=== PATIENT | male | born 1995 | race Native Hawaiian/Other Pacific Islander ===

== ENCOUNTER 2017-10-22 00:48 | Emergency (ER) | payer MEDICAID ==
[~2017-10-22 00:48] MED LIST: TRAM-388 PO
[2017-10-22 01:15] VITALS: BP 146/76; PULSE 96; RESP 18; O2SAT 98
[2017-10-22 01:30] LABS: AUTOMATED NEUTROPHIL # 7.3 TH/MM3 (1.8-7.7); BASOPHIL % 0.4 % (0.0-2.0); EOSINOPHIL # 0.1 TH/MM3 (0-0.4); EOSINOPHIL % 0.8 % (0.0-4.0); HEMOGLOBIN 15.5 GM/DL (13.0-17.0); LYMPH % 16.6 % (9.0-44.0); LYMPHOCYTE # 1.6 TH/MM3 (1.0-4.8); MEAN CELL VOLUME 84.8 FL (80.0-100.0); MEAN CORPUSCULAR HEMOGLOBIN 29.2 PG (27.0-34.0); MEAN CORPUSCULAR HGB CONC 34.4 % (32.0-36.0); MEAN PLATELET VOLUME 8.8 FL (7.0-11.0); MONO % 6.3 % (0.0-8.0); MONOCYTE # 0.6 TH/MM3 (0-0.9); NEUT % 75.9 % (16.0-70.0); PLATELET COUNT 232 TH/MM3 (150-450); RED CELL DISTRIBUTION WIDTH 13.5 % (11.6-17.2); WHITE BLOOD COUNT 9.6 TH/MM3 (4.0-11.0)
[2017-10-22 01:32] LABS: BILIRUBIN, URINE NEG (NEG); BLOOD, URINE NEG (NEG); GLUCOSE,URINE NEG (NEG); KETONE, URINE NEG (NEG); MUCUS URINE FEW /lpf (OCC); NITRITE,URINE NEG (NEG); URINE COLOR YELLOW (YELLW/STRAW); URINE LEUKOCYTE ESTERASE NEG (NEG)
--- NOTE | 2017-10-22 01:49 | PD ---
HPI Chief Complaint: Psychiatric Symptoms Time Seen by Provider: 01:02 Travel History International Travel<30 days: No Contact w/Intl Traveler<30days: No Traveled to known affect area: No History of Present Illness HPI Patient is a 22-year-old male presented to the emergency department for psychiatric evaluation under Reyna act. Patient allegedly made statement that he was going to kill himself. Patient reported that he was not invited to a green party, he questioned her friend as to why and he was given "constructive criticism" about things he could improve on himself. That is when he made no statements. He denies wanting to kill himself, he denies any psychiatric history previous suicidal ideations. He states that after he talked to his friend Mary he went running and for a drive. He states the person that called the police never even attempted to get in contact with him. Symptom onset was sudden, the exacerbating factors include his friends. PFSH Past Medical History Medical History: Denies Significant Hx Diabetes: No Patient Takes Glucophage: No Diminished Hearing: No Immunizations Current: Yes Past Surgical History Surgical History: No Previous Surgery Social History Alcohol Use: No Tobacco Use: No Substance Use: No Allergies-Medications (Allergen,Severity, Reaction): Coded Allergies: No Known Allergies (Unverified , 07/03/15) Reported Meds & Prescriptions Reported Meds & Active Scripts Active Review of Systems Except as stated in HPI: all other systems reviewed are Neg Physical Exam Narrative GENERAL: Well Developed, well-nourished, alert male. Resting in no acute distress. SKIN: Warm and dry. HEAD: Atraumatic. Normocephalic. EYES: Pupils equal and round. No scleral icterus. No injection or drainage. ENT: No nasal bleeding or discharge. Mucous membranes pink and moist. NECK: Trachea midline. No JVD. CARDIOVASCULAR: Regular rate and rhythm. RESPIRATORY: No accessory muscle use. Clear to auscultation. Breath sounds equal bilaterally. GASTROINTESTINAL: Abdomen soft, non-tender, nondistended. Hepatic and splenic margins not palpable. MUSCULOSKELETAL: Extremities without clubbing, cyanosis, or edema. No obvious deformities. NEUROLOGICAL: Awake and alert. No obvious cranial nerve deficits. Motor grossly within normal limits. Five out of 5 muscle strength in the arms and legs. Normal speech. PSYCHIATRIC: Appropriate mood and affect; insight and judgment normal. Data Data Last Documented VS Vital Signs Date Time Temp Pulse Resp B/P (MAP) Pulse Ox O2 Delivery O2 Flow Rate FiO2 10/22/17 01:15 96 18 146/76 (99) 98 Room Air Orders Orders Complete Blood Count With Diff (10/22/17 01:00) Comprehensive Metabolic Panel (10/22/17 01:00) Thyroid Stimulating Hormone (10/22/17 01:00) Urinalysis - C+S If Indicated (10/22/17 01:00) Psych Screen (10/22/17 01:00) Drug Screen, Random Urine (10/22/17 01:00) Alcohol (Ethanol) (10/22/17 01:00) Salicylates (Aspirin) (10/22/17 01:00) Tylenol (Acetaminophen) (10/22/17 01:00) Labs Laboratory Tests Test 10/22/17 01:15 White Blood Count 9.6 TH/MM3 Red Blood Count 5.30 MIL/MM3 Hemoglobin 15.5 GM/DL Hematocrit 45.0 % Mean Corpuscular Volume 84.8 FL Mean Corpuscular Hemoglobin 29.2 PG Mean Corpuscular Hemoglobin Concent 34.4 % Red Cell Distribution Width 13.5 % Platelet Count 232 TH/MM3 Mean Platelet Volume 8.8 FL Neutrophils (%) (Auto) 75.9 % Lymphocytes (%) (Auto) 16.6 % Monocytes (%) (Auto) 6.3 % Eosinophils (%) (Auto) 0.8 % Basophils (%) (Auto) 0.4 % Neutrophils # (Auto) 7.3 TH/MM3 Lymphocytes # (Auto) 1.6 TH/MM3 Monocytes # (Auto) 0.6 TH/MM3 Eosinophils # (Auto) 0.1 TH/MM3 Basophils # (Auto) 0.0 TH/MM3 CBC Comment DIFF FINAL Differential Comment Urine Color YELLOW Urine Turbidity CLEAR Urine pH 6.0 Urine Specific [place] 1.036 Urine Protein TRACE mg/dL Urine Glucose (UA) NEG mg/dL Urine Ketones NEG mg/dL Urine Occult Blood NEG Urine Nitrite NEG Urine Bilirubin NEG Urine Urobilinogen 2.0 MG/DL Urine Leukocyte Esterase NEG Urine RBC 1 /hpf Urine WBC 1 /hpf Urine Mucus FEW /lpf Microscopic Urinalysis Comment CULT NOT INDICATED Blood Urea Nitrogen 20 MG/DL Creatinine 1.15 MG/DL Random Glucose 148 MG/DL Total Protein 7.5 GM/DL Albumin 4.3 GM/DL Calcium Level 8.6 MG/DL Alkaline Phosphatase 71 U/L Aspartate Amino Transf (AST/SGOT) 16 U/L Alanine Aminotransferase (ALT/SGPT) 31 U/L Total Bilirubin 0.2 MG/DL Sodium Level 140 MEQ/L Potassium Level 3.7 MEQ/L Chloride Level 104 MEQ/L Carbon Dioxide Level 27.1 MEQ/L Anion Gap 9 MEQ/L Estimat Glomerular Filtration Rate 80 ML/MIN Thyroid Stimulating Hormone 3rd Gen 1.100 uIU/ML Salicylates Level LESS THAN 1.7 MG/DL Urine Opiates Screen NEG Acetaminophen Level LESS THAN 2.0 MCG/ML Urine Barbiturates Screen NEG Urine Amphetamines Screen NEG Urine Benzodiazepines Screen NEG Urine Cocaine Screen NEG Urine Cannabinoids Screen NEG Ethyl Alcohol Level LESS THAN 3 MG/DL MDM Medical Decision Making Medical Screen Exam Complete: Yes Emergency Medical Condition: Yes Interpretation(s) Vital Signs Date Time Temp Pulse Resp B/P (MAP) Pulse Ox O2 Delivery O2 Flow Rate FiO2 10/22/17 01:15 96 18 146/76 (99) 98 Room Air Differential Diagnosis Mood disorder versus substance abuse versus metabolic abnormality versus other Narrative Course Patient is a 22-year-old male presenting for psychiatric evaluation under Reyna act. Patient's vital signs are stable. Mental health screening discussed with the patient. Psychiatric screen ordered. Labs reviewed, no acute findings identified. Patient is medically clear for psychiatric evaluation. Diagnosis Primary Impression: Medical clearance for psychiatric admission Condition: Stable Jessi Olivares Oct 22, 2017 01:48
[2017-10-22 02:16] LABS: ALKALINE PHOSPHATASE 71 U/L (45-117); TOTAL BILIRUBIN ADULT 0.2 MG/DL (0.2-1.0); TOTAL PROTEIN 7.5 GM/DL (6.4-8.2)
[2017-10-22 02:18] LABS: ALBUMIN 4.3 GM/DL (3.4-5.0); ALT (GPT) 31 U/L (12-78); AST (GOT) 16 U/L (15-37); BICARBONATE 27.1 MEQ/L (21.0-32.0); BLOOD UREA NITROGEN 20 MG/DL (7-18); CALCIUM 8.6 MG/DL (8.5-10.1); CHLORIDE 104 MEQ/L (98-107); CREATININE 1.15 MG/DL (0.60-1.30); GLOMERULAR FILTRATION RATE 80 ML/MIN (>89); GLUCOSE,RANDOM 148 MG/DL (74-106); SODIUM (NA) 140 MEQ/L (136-145)
[2017-10-22 02:20] LABS: ACETAMINOPHEN LESS THAN 2.0 MCG/ML (10.0-30.0)
[2017-10-22 07:32] VITALS: BP 141/86; PULSE 86; RESP 18; TEMP 98.4; O2SAT 98
--- NOTE | 2017-10-22 09:48 | PD ---
Physical Exam Date Seen by Provider: Oct 22, 2017 Time Seen by Provider: 09:48 Narrative 22-year-old male previously Reyna acted and medically cleared for psychiatric evaluation, patient seen by psychiatry and felt to be psychiatrically stable for discharge. Patient remains medically stable at time of discharge. Follow- up is as per psychiatric note. Data Data Last Documented VS Vital Signs Date Time Temp Pulse Resp B/P (MAP) Pulse Ox O2 Delivery O2 Flow Rate FiO2 10/22/17 07:32 98.4 86 18 141/86 (104) 98 Room Air Orders Orders Complete Blood Count With Diff (10/22/17 01:00) Comprehensive Metabolic Panel (10/22/17 01:00) Thyroid Stimulating Hormone (10/22/17 01:00) Urinalysis - C+S If Indicated (10/22/17 01:00) Psych Screen (10/22/17 01:00) Drug Screen, Random Urine (10/22/17 01:00) Alcohol (Ethanol) (10/22/17 01:00) Salicylates (Aspirin) (10/22/17 01:00) Tylenol (Acetaminophen) (10/22/17 01:00) Diet Regular Basic (10/22/17 Breakfast) Labs Laboratory Tests Test 10/22/17 01:15 White Blood Count 9.6 TH/MM3 Red Blood Count 5.30 MIL/MM3 Hemoglobin 15.5 GM/DL Hematocrit 45.0 % Mean Corpuscular Volume 84.8 FL Mean Corpuscular Hemoglobin 29.2 PG Mean Corpuscular Hemoglobin Concent 34.4 % Red Cell Distribution Width 13.5 % Platelet Count 232 TH/MM3 Mean Platelet Volume 8.8 FL Neutrophils (%) (Auto) 75.9 % Lymphocytes (%) (Auto) 16.6 % Monocytes (%) (Auto) 6.3 % Eosinophils (%) (Auto) 0.8 % Basophils (%) (Auto) 0.4 % Neutrophils # (Auto) 7.3 TH/MM3 Lymphocytes # (Auto) 1.6 TH/MM3 Monocytes # (Auto) 0.6 TH/MM3 Eosinophils # (Auto) 0.1 TH/MM3 Basophils # (Auto) 0.0 TH/MM3 CBC Comment DIFF FINAL Differential Comment Urine Color YELLOW Urine Turbidity CLEAR Urine pH 6.0 Urine Specific [place] 1.036 Urine Protein TRACE mg/dL Urine Glucose (UA) NEG mg/dL Urine Ketones NEG mg/dL Urine Occult Blood NEG Urine Nitrite NEG Urine Bilirubin NEG Urine Urobilinogen 2.0 MG/DL Urine Leukocyte Esterase NEG Urine RBC 1 /hpf Urine WBC 1 /hpf Urine Mucus FEW /lpf Microscopic Urinalysis Comment CULT NOT INDICATED Blood Urea Nitrogen 20 MG/DL Creatinine 1.15 MG/DL Random Glucose 148 MG/DL Total Protein 7.5 GM/DL Albumin 4.3 GM/DL Calcium Level 8.6 MG/DL Alkaline Phosphatase 71 U/L Aspartate Amino Transf (AST/SGOT) 16 U/L Alanine Aminotransferase (ALT/SGPT) 31 U/L Total Bilirubin 0.2 MG/DL Sodium Level 140 MEQ/L Potassium Level 3.7 MEQ/L Chloride Level 104 MEQ/L Carbon Dioxide Level 27.1 MEQ/L Anion Gap 9 MEQ/L Estimat Glomerular Filtration Rate 80 ML/MIN Thyroid Stimulating Hormone 3rd Gen 1.100 uIU/ML Salicylates Level LESS THAN 1.7 MG/DL Urine Opiates Screen NEG Acetaminophen Level LESS THAN 2.0 MCG/ML Urine Barbiturates Screen NEG Urine Amphetamines Screen NEG Urine Benzodiazepines Screen NEG Urine Cocaine Screen NEG Urine Cannabinoids Screen NEG Ethyl Alcohol Level LESS THAN 3 MG/DL MDM Medical Record Reviewed: Yes Supervised Visit with NICHOLAS: Yes Narrative Course 22-year-old male previously Reyna acted and medically cleared for psychiatric evaluation, patient seen by psychiatry and felt to be psychiatrically stable for discharge. Patient remains medically stable at time of discharge. Follow- up is as per psychiatric note. Diagnosis Primary Impression: Medical clearance for psychiatric admission Referrals: NO PRIMARY CARE PHYSICIAN (PCP) Patient Instructions: General Instructions Departure Forms: Tests/Procedures Disposition: DISCHARGE HOME Condition: Stable Wilman Castillo Oct 22, 2017 09:48
--- NOTE | 2017-10-22 09:53 | PD ---
History of Present Illness Chief Complaint: Psychiatric Symptoms Time Seen by Provider: 09:00 Travel History International Travel<30 Days: No Contact w/Intl Traveler<30days: No Known affected area: No Legal Status Legal Status: Reyna Act Reyna Act Signed By: Kimani Rincon Reyna Act Comment: 10/22/2017 1230 AM OFC. 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 Patient currently calm, pleasant and cooperative. Denies being actually suicidal but admits to having made statements last night. States he was upset but also reports leonard for safety. Told multiple friends last night he was not going to harm himself but one of his friends did not get the message and called police. At this time, the patient denies any suicidal or homicidal ideation, plan or intent. He has no psychotic symptoms and his cognition is intact. He is verbally leonard for safety and he is competent to do so. He does not wish to call his parents in [place], as they have been through "a lot" with his brother and he does not wish to worry them. PFSH Past Medical History Medical History: Denies Significant Hx Diabetes: No Patient Takes Glucophage: No Diminished Hearing: No Immunizations Current: Yes Past Surgical History Surgical History: No Previous Surgery Psychiatric History Psychiatric History Hx Psychiatric Treatment: Patient denies any inpatient or outpatient psychiatric treatment. History of Inpatient Treatment: No Guns or firearms in home: No Social History Hx Alcohol Use: No Hx Tobacco Use: No Hx Substance Use: No Hx of Substance Use Treatment: No Allergies-Medications (Allergen,Severity, Reaction): Coded Allergies: No Known Allergies (Unverified , 07/03/15) Reported Meds & Prescriptions Reported Meds & Active Scripts Active Review of Systems Except as stated in HPI: all other systems reviewed are Neg Mental Status Examination Appearance: Appropriate Consciousness: Alert Orientation: x4 Motor Activity: Normal gait Speech: Unremarkable Language: Adequate Fund of Knowledge: Adequate Attention and Concentration: Adequate Memory: Unremarkable Mood: Appropriate Affect: Appropriate Thought Process & Associations: Intact Thought Content: Appropriate Hallucination Type: None Delusion Type: None Suicidal Ideation: No Suicidal Plan: No Suicidal Intention: No Homicidal Ideation: No Homicidal Plan: No Homicidal Intention: No Insight: Adequate Judgment: Adequate [facility] Medical Decision Making Medical Record Reviewed: Yes Assessment/Plan Patient interviewed at bedside. Electronic medical record reviewed. Case discussed with nurse Cristy. Patient does not meet Reyna act criteria at this time and does not meet criteria for involuntary psychiatric hospitalization. Orders Orders Complete Blood Count With Diff (10/22/17 01:00) Comprehensive Metabolic Panel (10/22/17 01:00) Thyroid Stimulating Hormone (10/22/17 01:00) Urinalysis - C+S If Indicated (10/22/17 01:00) Psych Screen (10/22/17 01:00) Drug Screen, Random Urine (10/22/17 01:00) Alcohol (Ethanol) (10/22/17 01:00) Salicylates (Aspirin) (10/22/17 01:00) Tylenol (Acetaminophen) (10/22/17 01:00) Diet Regular Basic (10/22/17 Breakfast) Results Vital Signs Date Time Temp Pulse Resp B/P (MAP) Pulse Ox O2 Delivery O2 Flow Rate FiO2 10/22/17 07:32 98.4 86 18 141/86 (104) 98 Room Air 10/22/17 01:15 96 18 146/76 (99) 98 Room Air Laboratory Tests Test 10/22/17 01:15 White Blood Count 9.6 Red Blood Count 5.30 Hemoglobin 15.5 Hematocrit 45.0 Mean Corpuscular Volume 84.8 Mean Corpuscular Hemoglobin 29.2 Mean Corpuscular Hemoglobin Concent 34.4 Red Cell Distribution Width 13.5 Platelet Count 232 Mean Platelet Volume 8.8 Neutrophils (%) (Auto) 75.9 Lymphocytes (%) (Auto) 16.6 Monocytes (%) (Auto) 6.3 Eosinophils (%) (Auto) 0.8 Basophils (%) (Auto) 0.4 Neutrophils # (Auto) 7.3 Lymphocytes # (Auto) 1.6 Monocytes # (Auto) 0.6 Eosinophils # (Auto) 0.1 Basophils # (Auto) 0.0 CBC Comment DIFF FINAL Differential Comment Urine Color YELLOW Urine Turbidity CLEAR Urine pH 6.0 Urine Specific [place] 1.036 Urine Protein TRACE Urine Glucose (UA) NEG Urine Ketones NEG Urine Occult Blood NEG Urine Nitrite NEG Urine Bilirubin NEG Urine Urobilinogen 2.0 Urine Leukocyte Esterase NEG Urine RBC 1 Urine WBC 1 Urine Mucus FEW Microscopic Urinalysis Comment CULT NOT INDICATED Blood Urea Nitrogen 20 Creatinine 1.15 Random Glucose 148 Total Protein 7.5 Albumin 4.3 Calcium Level 8.6 Alkaline Phosphatase 71 Aspartate Amino Transf (AST/SGOT) 16 Alanine Aminotransferase (ALT/SGPT) 31 Total Bilirubin 0.2 Sodium Level 140 Potassium Level 3.7 Chloride Level 104 Carbon Dioxide Level 27.1 Anion Gap 9 Estimat Glomerular Filtration Rate 80 Thyroid Stimulating Hormone 3rd Gen 1.100 Salicylates Level LESS THAN 1.7 Urine Opiates Screen NEG Acetaminophen Level LESS THAN 2.0 Urine Barbiturates Screen NEG Urine Amphetamines Screen NEG Urine Benzodiazepines Screen NEG Urine Cocaine Screen NEG Urine Cannabinoids Screen NEG Ethyl Alcohol Level LESS THAN 3 Diagnosis Primary Impression: Adjustment disorder with mixed disturbance of emotions and conduct Referrals: NO PRIMARY CARE PHYSICIAN (PCP) Departure Forms: Tests/Procedures Patient Instructions: General Instructions Disposition: 01 DISCHARGE HOME Condition: Stable Torin Perez MD Oct 22, 2017 09:53
[2017-10-22 10:00] VITALS: BP 138/56
== END 2017-10-22 10:00 | disposition home or self-care (01) ==
LOC: NEPD 00:48
DX: F43.25 Adjustment disorder with mixed disturbance of emotions and conduct (principal)
CPT/HCPCS: 80053; 80307; 81001; 84443; 85025; 99284